=== PATIENT | female | born 1985 | race Caucasian/White ===

== ENCOUNTER → 2016-11-02 | Outpatient (CLI) | payer BC, OTHER ==
[~2016-11-02] MED LIST: DEXL60CA4 PO; FLNIN NAE; IBUP1CAP9 PO; MEDR5TAB PO; ORPH100T PO; VNTHFA/IN INH
--- NOTE | 2016-11-02 10:39 | DIAGNOSTIC IMAGING REPORT ---
LUMBAR SPINE 5 VIEWS HISTORY: Pain M54.5 Acute low back pain due to [id number] COMPARISON: None. FINDINGS: There is no fracture. No subluxation. Disc spaces are preserved. IMPRESSION: No fracture or subluxation within the lumbar spine. Electronically signed by: Neftaly Benites M.D. 11/02/2016 10:38 AM Dictated Date/Time: 11/02/2016 10:38 AM
--- NOTE | 2016-11-02 10:40 | DIAGNOSTIC IMAGING REPORT ---
PELVIS 1 OR 2 VIEW ROUTINE HISTORY:31 [id number] Acute low back pain due to trauma COMPARISON: Lumbar spine radiographs of same day TECHNIQUE: Single AP view of the pelvis. FINDINGS: There is no acute fracture or dislocation. The bony pelvis appears intact. No significant degenerative changes. Phleboliths are seen within the pelvis. No radiopaque foreign body. IMPRESSION: No acute bony abnormality. The above report was generated using voice recognition software. It may contain grammatical, syntax or spelling errors. Electronically signed by: Moose Montilla 11/02/2016 10:39 AM Dictated Date/Time: 11/02/2016 10:37 AM
== END | disposition home or self-care (01) ==
LOC: C.RADBBURG 10:06
PROVIDERS: ATTEND Physician Assistant
DX: M54.5 Low back pain (principal); Z87.828 Personal history of other (healed) physical injury and trauma

== ENCOUNTER → 2016-12-15 | Outpatient (CLI) | payer OTHER ==
--- NOTE | 2016-12-15 14:14 | DIAGNOSTIC IMAGING REPORT ---
LEFT ELBOW MIN 3 VIEWS ROUTINE HISTORY: 31 years-old Female M25.529 Elbow [id number] COMPARISON: None available TECHNIQUE: 3 views of the left elbow. FINDINGS: There is no acute fracture, dislocation or significant degenerative changes. Articular surfaces appear intact. No large joint effusion or radiopaque foreign body. IMPRESSION: Normal left elbow radiographs. The above report was generated using voice recognition software. It may contain grammatical, syntax or spelling errors. Electronically signed by: Moose Montilla M.D. 12/15/2016 2:13 PM Dictated Date/Time: 12/15/2016 2:12 PM
== END | disposition home or self-care (01) ==
LOC: C.RAD1850 13:50
PROVIDERS: ATTEND Physician Assistant
DX: M25.529 Pain in unspecified elbow (principal)